=== PATIENT | female | born 1965 | race Caucasian/White ===

== ENCOUNTER → 2017-10-06 | Day surgery (SDC) | payer OTHER ==
[~2017-10-06] VITALS: Ht 167.6 cm; Wt 79.4 kg
[~2017-10-06] MED LIST: DELTASONE20 MG PO; EPIPEN 2-P0.3 MG/0.3 IM; MEDROL4 M2 PO; ZITHROMAX250 M2 PO
--- NOTE | 2017-10-06 08:52 | Operative Report ---
Operative/Inv Procedure Report Surgery Date: 10/06/17 Name of Procedure: Excisional biopsy deep cervical, level II, right With Nims monitor Pre-Operative Diagnosis: Tail of the parotid lymph nodes, right Post-Operative Diagnosis: Same Estimated Blood Loss: scant Surgeon/Grape Cutter: Felicita Hernandez MD Anesthesia: general endotracheal tube Monitors: Nims monitor Specimens: Tail of the parotid lymph node, level II, right Microbiology: tail of the parotid lymph node Complications: None Condition: Stable on leaving the OR Operative Indication: tail of the parotid lymph nodes enlarged and firm Operative/Procedure Note Note: The patient was brought to the operating room, placeded on the operating room table in supine position. At first timeout was performed including patient's identification and the surgical procedure to be performed. Then general orotracheal anesthesia was induced. Table was rotated 90 to the patient's right away from anesthesia with right neck toward the surgeon. Head was rotated to the left, right neck exposed. NIMS monitor electrodes were inserted into the right lower lip and sternocleidomastoid for nerve monitoring of the marginal mandibular and spinal accessory nerves. The electrodes were was secured in place with OpSite. They were then connected to the NIMS monitor which was then set neck dissection mode, 2 leads. Neck was prepped and draped in the routine manner and surgery was performed. A horizontal incision was placed in a skin crease manner about 2 fingerbreadths below the angle of the mandible. The incision was crosshatched for the end of the surgery skin approximation. The incision was carried with a 15 blade through the skin and subcutaneous tissue. Subcutaneous tissue was then dissected with Payton. Tail of the parotid gland was identified. Just below the parotid balanced salt lymph node measuring approximately 1 x 2 cm. The lymph node was carefully dissected and removed. The lymph node was quite friable. It was attached to another lymph node anterior and superior to it. The second lymph node was not removed. Once the lymph node was removed Paremyd was sent for cultures and the remainder sent for pathology. Dissection was carried posterior to marginal mandibular nerve and it was never identified. Greater auricular branch to the auricle was identified and preserved. The wound was irrigated and Helotene powder was applied. Closure was then carried at the deep layer with 4-0 Vicryl inverting sutures followed by skin closure with 5-0 Vicryl horizontal subcuticular running stitch. Dermabond was applied to the incision followed by Steri-Strips. Drain tubing was connected to the self suction carnisters. Pressure dressing was placed with fluffs and wraparound four-inch gauze. Surgery was completed. Patient was then reawakened, extubated and taken to the recovery room in good condition. There were no complications. Estimated blood loss was scant mL. Findings: Friable lymph node with an tail of the parotid 1 x 2 cm Discharge Disposition: PACU limit of the dissection. Jugular vein was preserved. Spinal accessory nerve was then searched for and identified deep to the 3 cm neck node and it was entering sternocleidomastoid muscle. Spinal accessory nerve was dissected and preserved. ternocleidomastoid muscle was retracted laterally and dissection was carried deep and medial to it. Dissection was carried medially along the internal jugular and carotid. There was a significant venous plexus with large anterior jugular vein which was also preserved. Medial dissection was carried along the internal jugular all the way down to the lower neck, level III. Omohyoid muscle was identified traversing the internal jugular. This defined the inferior extent of the dissection. Cricoid ring was palpated which was again defining the inferior limit of the neck dissection. Ansa cervicalis was identified and preserved. All the fibrofatty tissue was swept superiorly with the specimen. Additional dissection was carried medial border of the sternocleidomastoid and deep to the sternocleidomastoid extending the dissection onto level V. Additional fibrofatty tissue was removed. Specimen was then removed and consisted primarily of level II and III lymph nodes. Once the specimen was freed from underlying tissue it was removed. Additional dissection was carried at the upper neck level V. This was sent separately to pathology. Surgery was completed. Wound was copiously irrigated. Additional bleeding sites cauterized with bipolar. Helotene powder was placed into the neck dissection bed. A #10 Welsh suction drains were inserted into the wound for drainage. One drain coming out through the anterior end of the incision the other through the posterior end of the incision. Drains were stitched in place with 2-0 silk. Closure was then carried at first platysma with 4-0 Vicryl inverting sutures followed by skin closure with 5-0 Vicryl horizontal subcuticular running stitch. Dermabond was applied to the incision followed by Steri-Strips. Drain tubing was connected to the JEANINE self suction carnisters. Pressure dressing was placed with fluffs and wraparound four-inch gauze. Patient was then reawakened, extubated and taken to the recovery room in good condition. There were no complications. Estimated blood loss was 30 mL. Discharge Disposition: PACU
== END ==
LOC: STS 02:17
DX: R59.0 Localized enlarged lymph nodes (principal); Z85.3 Personal history of malignant neoplasm of breast; Z86.14 Personal history of Methicillin resistant Staphylococcus aureus infection
CPT/HCPCS: 87070; 87075; J0131; J0690; J1100; J2250; J2405